=== PATIENT | female | born 1955 | race Asian ===

== ENCOUNTER 2018-09-06 13:24 | Day surgery (SDC) | payer BC ==
[~2018-09-06] VITALS: Ht 167.6 cm; Wt 72.3 kg
[~2018-09-06 13:24] MED LIST: Aspir 8181 MG PO; NAPR500 PO; ONE DAILY COMP1 EACH PO; Phentermine HCl30 MG; SENN187 PO; Vitamin D2000 UNIT PO
== END 2018-09-06 16:15 | disposition home or self-care (01) ==
LOC: ORSCSDS 13:24
PROVIDERS: Internal Medicine Gastroenterology
PROC: 0DBL8ZX Excision of Transverse Colon, Via Natural or Artificial Opening Endoscopic, Diagnostic (ICD-10-PCS; principal; 2018-09-06 14:30)
PROC: 0DBN8ZX Excision of Sigmoid Colon, Via Natural or Artificial Opening Endoscopic, Diagnostic (ICD-10-PCS; principal; 2018-09-06 14:30)
PROC: 0DBC8ZX Excision of Ileocecal Valve, Via Natural or Artificial Opening Endoscopic, Diagnostic (ICD-10-PCS; principal; 2018-09-06 14:30)
DX: Z12.11 Encounter for screening for malignant neoplasm of colon (principal); Z86.010 Personal history of colon polyps; Z80.0 Family history of malignant neoplasm of digestive organs; D12.0 Benign neoplasm of cecum; D12.3 Benign neoplasm of transverse colon; K63.5 Polyp of colon; K57.30 Diverticulosis of large intestine without perforation or abscess without bleeding; K64.8 Other hemorrhoids; Z87.891 Personal history of nicotine dependence; Z79.82 Long term (current) use of aspirin; Z79.899 Other long term (current) drug therapy
CPT/HCPCS: 88305; J7120

== ENCOUNTER → 2018-10-08 | Outpatient (CLI) | payer BC | END | disposition home or self-care (01) | LOC: PLD 07:59 → LAB SHORT 07:59 | DX: D48.5 Neoplasm of uncertain behavior of skin (principal) | CPT/HCPCS: 88305 ==